=== PATIENT | male | born 2000 | race African-American/Black ===

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

== ENCOUNTER 2022-08-16 00:38 | Emergency (ER) | payer OTHER ==
[~2022-08-16] VITALS: Ht 175.3 cm; Wt 56.0 kg
[~2022-08-16 00:38] MED LIST changes: +ALBU6.7H3 INH; -ALBU6.7H9 INH; +AMOX1TAB16 MT; +CETI-89 MT
[2022-08-16 00:44] VITALS: BP 102/70
[2022-08-16] MEDS ORDERED: PREDNISONE 20MG TABLET PO ONE (01:30)
[2022-08-16] MEDS ORDERED: ALBUTEROL (0.083%) 2.5MG/3ML NEB HHN ONE (01:30)
[2022-08-16] MEDS ORDERED: P20 MT (01:51)
[2022-08-16] MEDS ORDERED: ALBU18HF2 IH (01:51)
== END 2022-08-16 03:03 | disposition home or self-care (01) ==
LOC: ER 00:38
DX: J45.901 Unspecified asthma with (acute) exacerbation (principal); Z79.899 Other long term (current) drug therapy
CPT/HCPCS: 94640; 99283; J7512; Z7610

== ENCOUNTER 2024-12-14 23:44 | Emergency (ER) | payer OTHER ==
[~2024-12-14] VITALS: Ht 172.7 cm; Wt 67.2 kg
[~2024-12-14 23:44] MED LIST changes: +ALBU18HF2 IH; +P20 MT
[2024-12-15 00:07] VITALS: TEMP 36.9
[2024-12-15] MEDS: DEXAMETHASONE 10 MG/ML VIAL PO ONE (01:47)
[2024-12-15 02:41] VITALS: BP 103/62; PULSE 55; RESP 14; O2SAT 100
== END 2024-12-15 02:43 | disposition home or self-care (01) ==
LOC: ER 23:44
DX: Q38.1 Ankyloglossia (principal); J45.909 Unspecified asthma, uncomplicated
CPT/HCPCS: 99283; J1100